=== PATIENT | male | born 1950 | race Caucasian/White ===

== ENCOUNTER 2017-03-22 09:18 | Emergency (ER) | payer MEDICARE, OTHER ==
[2017-03-22 09:37] VITALS: RESP 20
[2017-03-22 10:44] VITALS: BP 135/86; PULSE 79; TEMP 97.9; O2SAT 95
== END 2017-03-22 10:49 | disposition home or self-care (01) | DRG 605 ==
LOC: ED 09:18
DX: S20.212A Contusion of left front wall of thorax, initial encounter (principal); W17.89XA Other fall from one level to another, initial encounter
CPT/HCPCS: 71101; 99282

== ENCOUNTER 2018-03-02 09:59 | Outpatient (CLI) | payer MEDICARE ==
[2017-03-22 10:44] VITALS: O2SAT 95
== END 2018-03-02 10:00 | disposition home or self-care (01) | DRG 563 ==
LOC: CONVCARE 09:59
PROVIDERS: ATTEND Orthopaedic Surgery
DX: S52.572A Other intraarticular fracture of lower end of left radius, initial encounter for closed fracture (principal); W19.XXXA Unspecified fall, initial encounter
CPT/HCPCS: 73110; 73200

== ENCOUNTER 2018-03-09 07:16 | Outpatient (CLI) | payer MEDICARE ==
[2017-03-22 10:44] VITALS: O2SAT 95
== END 2018-03-09 07:17 | disposition home or self-care (01) | DRG 561 ==
LOC: CONVCARE 07:16
PROVIDERS: ATTEND Orthopaedic Surgery
DX: S62.102D Fracture of unspecified carpal bone, left wrist, subsequent encounter for fracture with routine healing (principal)
CPT/HCPCS: 73110

== ENCOUNTER 2018-03-30 09:31 | Outpatient (CLI) | payer MEDICARE ==
[2017-03-22 10:44] VITALS: O2SAT 95
== END 2018-03-30 09:32 | disposition home or self-care (01) | DRG 561 ==
LOC: CONVCARE 09:31
PROVIDERS: ATTEND Orthopaedic Surgery
DX: S62.102D Fracture of unspecified carpal bone, left wrist, subsequent encounter for fracture with routine healing (principal); Z51.89 Encounter for other specified aftercare
CPT/HCPCS: 73110